=== PATIENT | male | born 1990 | race Hispanic/Latino ===

== ENCOUNTER 2020-06-11 11:07 | Emergency (ER) | payer OTHER ==
[~2020-06-11] VITALS: Ht 172.7 cm; Wt 85.5 kg
[2020-06-11] MEDS ORDERED: AMOXICILLIN500 MG PO (12:04)
[2020-06-11] MEDS ORDERED: VENTOLIN HFA IN (13:34)
[2020-06-11] MEDS ORDERED: ZITHROMAX500 MG PO (13:34)
[2020-06-11 13:40] VITALS: BP 119/74
== END 2020-06-11 13:40 | disposition home or self-care (01) | DRG 177 ==
LOC: ED 11:07
DX: U07.1 COVID-19 (principal); J12.82 Pneumonia due to coronavirus disease 2019